=== PATIENT | female | born 1965 | race Caucasian/White ===

== ENCOUNTER 2019-12-09 15:46 | Emergency (ER) | payer MEDICARE, OTHER ==
[~2019-12-09] VITALS: Ht 162.6 cm; Wt 90.0 kg
[~2019-12-09 15:46] MED LIST: TRAM50TA2 PO; UNABLE TO OBTAIN
--- NOTE | 2019-12-09 16:14 | NUR ---
MICHELE Manley is at the bedside at this time.
[2019-12-09] MEDS ORDERED: morphine 4 MG/ML inj SYRINge IV PRN (16:20)
[2019-12-09] MEDS ORDERED: ondansetron/PF 4mg/2ml inj IV ONE (16:20)
[2019-12-09] MEDS ORDERED: normal saline 1000ML IV soln IVB ONE (16:20)
[2019-12-09 16:37] LABS: BASOPHILS # (AUTO) 0.1 X10'3 (0-0.2); BASOPHILS % (AUTO) 1.1 % (0-1); EOSINOPHILS # (AUTO) 0.5 X10'3 (0-0.9); EOSINOPHILS % (AUTO) 4.1 % (0-6); HEMATOCRIT 42.3 % (35.0-45.0); HEMOGLOBIN 13.9 g/dl (12.0-16.0); LYMPHOCYTES # (AUTO) 3.1 X10'3 (1.1-4.8); LYMPHOCYTES % (AUTO) 27.5 % (21-51); MEAN CORPUSCULAR HEMOGLOBIN 29.4 PG (27.0-31.0); MEAN CORPUSCULAR HGB CONC 32.9 g/dL (33.0-36.5); MEAN CORPUSCULAR VOLUME 89.4 FL (78-98); MEAN PLATELET VOLUME 7.7 FL (7.4-10.4); MONOCYTES # (AUTO) 0.9 X10'3 (0-0.9); MONOCYTES % (AUTO) 7.8 % (2-12); NEUTROPHILS # (AUTO) 6.7 X10'3 (1.8-7.7); NEUTROPHILS % (AUTO) 59.5 % (42-75); PLATELET COUNT 409 X10'3 (140-440); RED BLOOD COUNT 4.74 X10'6 (4.20-5.60); RED CELL DISTRIBUTION WIDTH 13.9 % (11.5-14.5); WHITE BLOOD COUNT 11.3 X10'3 (4.5-11.0)
[2019-12-09 16:52] LABS: ALANINE AMINOTRANSFERASE 23 U/L (12-78); ALBUMIN 3.8 G/DL (3.4-5.0); ALBUMIN/GLOBULIN RATIO 0.9 (1.1-1.5); ALKALINE PHOSPHATASE 98 IU/L (46-116); ANION GAP 6 (8-16); ASPARTATE AMINO TRANSFERASE 18 U/L (10-37); BILIRUBIN,TOTAL 0.2 MG/DL (0.1-1.0); BLOOD UREA NITROGEN 15 MG/DL (7-18); BUN/CREATININE RATIO 18.8 (6.6-38.0); CALCIUM 9.1 MG/DL (8.5-10.1); CHLORIDE 103 MMOL/L (99-107); GLUCOSE 87 MG/DL (70-104); LIPASE 485 U/L (73-393); POTASSIUM 4.5 MMOL/L (3.5-5.1); SODIUM 141 MMOL/L (135-145); TOTAL CARBON DIOXIDE 32.2 MMOL/L (24-32); TOTAL PROTEIN 7.9 G/DL (6.4-8.2); eGFR 75 ML/MIN
[2019-12-09 17:54] LABS: CLARITY,URINE SLIGHTLY CLOUDY (Clear); COLOR,URINE YELLOW (Yellow); GLUCOSE, URINE NEGATIVE (Neg); KETONES,URINE NEGATIVE (Neg); LEUKOCYTE ESTERASE ,URINE NEGATIVE (Neg); NITRITES, URINE NEGATIVE (Neg); OCCULT BLOOD,URINE NEGATIVE (Neg); PH,URINE 6.5 (4.8-8.0); PROTEIN,URINE NEGATIVE (Neg); UROBILINOGEN,URINE 0.2 E.U/dL (0.2-1.0)
[2019-12-09 17:59] LABS: UA COLLECTION TYPE CLN CATCH MIDSTREAM
[2019-12-09] MEDS ORDERED: lactulose 20gm/30ml cup PO ONE (18:00)
[2019-12-09] MEDS ORDERED: BISA10SU60 RC (18:00)
[2019-12-09] MEDS ORDERED: POLY17PO10 PO (18:00)
[2019-12-09] MEDS ORDERED: DOCU-148 PO (18:00)
[2019-12-09 18:02] LABS: SQUAMOUS EPITHELIAL CELL,UR MODERATE /LPF (FEW)
[2019-12-09 18:03] LABS: BACTERIA,URINE FEW /HPF (Neg); MUCUS STRANDS NONE SEEN /LPF (Neg); RBC,URINE 0-2 /HPF (0-2); TRANSITIONAL EPI CELLS,URINE FEW /HPF; WBC,URINE 0-4 /HPF (0-4)
[2019-12-09] MEDS ORDERED: ketorolac trometh. 30mg/ml inj. IV ONE (18:10)
[2019-12-09 19:50] VITALS: BP 141/65
== END 2019-12-09 19:20 | disposition home or self-care (01) ==
LOC: ER 15:47
DX: K59.00 Constipation, unspecified (principal); E66.9 Obesity, unspecified; R10.30 Lower abdominal pain, unspecified; E11.9 Type 2 diabetes mellitus without complications; M19.90 Unspecified osteoarthritis, unspecified site; Z98.890 Other specified postprocedural states; Z86.711 Personal history of pulmonary embolism; Z98.84 Bariatric surgery status; Z88.8 Allergy status to other drugs, medicaments and biological substances; Z88.1 Allergy status to other antibiotic agents; Z79.899 Other long term (current) drug therapy
CPT/HCPCS: 36415; 74176; 80053; 81001; 83690; 85025; 96374; 96375; 99284; J1885; J2270; J2405; J7030

== ENCOUNTER 2023-12-27 17:01 | Emergency (ER) | payer OTHER, MEDICARE ==
[~2023-12-27] VITALS: Ht 162.6 cm; Wt 93.6 kg
[~2023-12-27 17:01] MED LIST changes: +BISA10SU60 RC; +DOCU-148 PO
[2023-12-27 17:18] VITALS: BP 125/72; PULSE 77; RESP 16; TEMP 98; O2SAT 99
== END 2023-12-27 19:09 | disposition left against medical advice (07) ==
LOC: ER 17:02
DX: Z04.2 Encounter for examination and observation following work accident (principal)
CPT/HCPCS: 99281

== ENCOUNTER 2025-01-03 16:55 | Emergency (ER) | payer OTHER, MEDICARE ==
[~2025-01-03] VITALS: Ht 162.6 cm; Wt 93.1 kg
[2025-01-03] MEDS: TETanus/Pertussis (Acell)/Diphther VAC/PF (Tdap-Adult) 0.5ml syringe IMVAC ONE (17:51)
[2025-01-03] MEDS ORDERED: CEPH-585 PO (18:01)
[2025-01-03 18:13] VITALS: BP 118/75; PULSE 87; RESP 16; TEMP 97.7; O2SAT 98
== END 2025-01-03 18:00 | disposition home or self-care (01) ==
LOC: ER 16:57
DX: S91.331A Puncture wound without foreign body, right foot, initial encounter (principal); F41.9 Anxiety disorder, unspecified; F32.A Depression, unspecified; E11.9 Type 2 diabetes mellitus without complications; M19.90 Unspecified osteoarthritis, unspecified site; Z88.1 Allergy status to other antibiotic agents; Z88.2 Allergy status to sulfonamides; Z88.6 Allergy status to analgesic agent; Z98.84 Bariatric surgery status; Z98.890 Other specified postprocedural states; X58.XXXA Exposure to other specified factors, initial encounter; Y93.89 Activity, other specified; Y92.89 Other specified places as the place of occurrence of the external cause; Y99.8 Other external cause status
CPT/HCPCS: 90471; 90715; 99283

== ENCOUNTER 2025-06-29 09:51 | Emergency (ER) | payer OTHER, MEDICARE ==
[~2025-06-29] VITALS: Ht 162.6 cm; Wt 90.9 kg
--- NOTE | 2025-06-29 10:30 | ELECTROCARDIOGRAPH REPORT ---
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 Devan Tucker Measurements Intervals Moose Rate: 55 P: 16 TX: 198 QRS: -10 QRSD: 82 T: -7 QT: 410 QTc: 393 Interpretive Statements Sinus bradycardia Left ventricular hypertrophy Borderline T abnormalities, inferior leads Baseline wander in lead(s) II,III,aVL,aVF,V1,V3,V6 Electronically Signed On 06-29-2025 19:35:[address] Devan Tucker Please click the below link to view image of tracing.
[2025-06-29 10:34] LABS: MEAN PLATELET VOLUME 7.8 FL (7.4-10.4); RED CELL DISTRIBUTION WIDTH 14.0 % (11.5-14.5)
--- NOTE | 2025-06-29 10:37 | RADIOLOGY REPORT ---
CLINICAL HISTORY: CP TECHNIQUE: Single view of the chest was obtained. COMPARISON: None FINDINGS: The heart size and pulmonary vasculature are normal. The lungs are clear. IMPRESSION: NO ACUTE CARDIOPULMONARY PROCESS.
--- NOTE | 2025-06-29 10:40 | Physician Documentation ---
History of Present Illness General Chief Complaint: Chest Pain Stated Complaint: BACK PAIN Time Seen by MD: 10:25 OK to notify your PCP?: No Primary Medical Doctor: [facility] Source: patient, RN notes reviewed Mode of Arrival: POV Exam Limitations: no limitations History of Present Illness Initial Comments 60 old female, with a history of pulmonary embolism but no longer and a blood thinner and diabetes, presents complaining of constant epigastric and mid thoracic back pain beginning around 0300 this morning while she was stretching in the bathroom. Pain is described as severe, rated 9/10 at this time. She also reports some mild nausea and mild shortness of breath. Pain worsens with deep breathing. She denies history of cholecystectomy but does have history of bariatric surgery. She denies any fever, diarrhea, constipation, or vomiting. Medication Reconciliation Allergies: Coded Allergies: midazolam HCl (Verified Allergy, Severe, 12/09/19) sulfamethoxazole (Verified Allergy, Severe, 12/09/19) trimethoprim (Verified Allergy, Severe, 12/09/19) NSAIDS (Non-Steroidal Anti-Inflamma (Verified Allergy, Unknown, 12/09/19) ibuprofen (Verified Allergy, Unknown, 12/09/19) Uncoded Allergies: ALL NARCOTICS (Allergy, Unknown, 02/14/15) Scheduled Bisacodyl (Dulcolax), 1 SUPP RC DAILY Docusate Sodium (Colace), 1 CAP PO Q12H Scheduled PRN Tramadol Hcl (Tramadol Hcl), 50 MG PO Q6H PRN FOR PAIN PRN for pain Miscellaneous Medications Unable to Obtain Medications (Unable to Obtain Medications), (Reported) Past Medical History Past Medical History: Pulmonary Embolism, Diverticulitis, Diabetes, Arthritis, Anxiety, Depression Past Surgical History: abdominal surgery, gastric bypass, orthopedic surgeries, other Other Past Surgical History: sinus surgery Smoking: Cigarettes Alcohol Use: Other Drug Use: none Lives In: Home Review of Systems All Other Systems at this time: Reviewed and Negative ROS epigastric pain as well as other positive symptoms as stated above in the HPI, otherwise all systems are reviewed and negative. Physical Exam Physical Exam Vital Signs: RN Vital Signs have been reviewed: Yes, Temperature: 97.7, Source: Temporal, Heart Rate: 56, Respiratory Rate: 10, BP: 119/66, Pulse Oximetry: 93, Weight: 90.900 Oxygen Flow Rate: 0 Pulse Oximetry Reflects: adequate oxygenation Physical Exam VITALS: Reviewed and as above. GENERAL: Alert, mild distress. HEENT: Normocephalic, atraumatic, PERRL, EOMI, dry mucosa RESPIRATORY: Lungs clear, normal breath sounds, no respiratory distress. CHEST: No accessory muscle use, no retractions CV: Regular rate, rhythm, no edema, no murmur, No: JVD GI: Diffuse upper abdominal tenderness. Soft, bowels sounds present, no rebound, guarding, or rigidity BACK: Mild mid thoracic paraspinal tenderness bilaterally. No CVA tenderness, or swelling MUSCULOSKELETAL: No deformities, no edema SKIN: Warm and dry, no rash NEURO: Oriented x4, No motor or sensory deficit PSYCH: Normal mood and affect, no agitation Progress Progress Note 1204: Case discussed with Dr. Pizarro, cardiothoracic surgery, who recommends transfer to higher level of care. 1216: Case relayed to [facility] transfer center. Will call back. 1300: [facility] declined due to capacity. 1415: Case discussed with [facility] transfer [facility] who accept patient for transfer to [facility]. 1515: Helicopter transport here to take the patient to [place]. Results/Orders Reviewed/noted all lab results: Yes Results/Orders Orders - TERRELL CAT MD Chest,Single View (06/29/25 10:12) Monitor (06/29/25 10:12) Saline Lock (06/29/25 10:12) Oxygen (06/29/25 10:12) Electrocardiogram (06/29/25 10:12) Cta Chest Ct Abd Pelvis (06/29/25 11:30) Cta Aorta Disection (06/29/25 13:55) Completed Orders - TERRELL CAT MD Chest,Single View (06/29/25 10:12) Cbc/Diff (06/29/25 10:12) BMP (06/29/25 10:12) PBNP (06/29/25 10:12) Electrocardiogram (06/29/25 10:12) Hs Troponin I W Calculations (06/29/25 10:12) Hs Troponin I W Calculations (06/29/25 12:12) D-Dimer (06/29/25 10:47) Normal Saline 1000ml (0.9% Sodium Chlori (06/29/25 10:50) Acetaminophen 1,000mg/100ml Iv (Ofirmev (06/29/25 10:50) Procalcitonin (06/29/25 10:29) Morphine 4mg/Ml Inj. (Morphine Inj.) (06/29/25 11:10) Cta Chest Ct Abd Pelvis (06/29/25 11:30) Iohexol 350mg/Ml 100ml (Omnipaque 350mg/ (06/29/25 11:33) Labetalol Inj. (Trandate 20 Mg/4ml Syrin (06/29/25 12:05) Morphine 4mg/Ml Inj. (Morphine Inj.) (06/29/25 12:05) Nicardipine-Ns 40mg/200ml Ivpb (Cardene- (06/29/25 13:00) Cta Aorta Disection (06/29/25 13:55) Communication Order (Communication Order (06/29/25 13:35) Iohexol 350mg/Ml 100ml (Omnipaque 350mg/ (06/29/25 13:34) Morphine 4mg/Ml Inj. (Morphine Inj.) (06/29/25 14:20) Vital Signs 06/29/25 06/29/25 06/29/25 06/29/25 10:04 10:23 10:23 12:14 Temp 97.7 97.7 97.7 Pulse 70 56 75 Resp 20 10 18 B/P (MAP) 108/41 119/66 (83) 120/61 (80) Pulse Ox 95 93 95 O2 Flow Rate 0 0 2.0 06/29/25 06/29/25 06/29/25 06/29/25 12:50 13:23 13:44 14:26 Temp 97.7 97.7 Pulse 54 68 67 66 Resp 18 18 16 B/P (MAP) 144/88 (106) 144/71 144/74 (97) 135/65 (88) Pulse Ox 98 93 94 O2 Flow Rate 2.0 2.0 2.0 06/29/25 06/29/25 14:46 14:48 Temp 97.7 Pulse 73 Resp 18 18 B/P (MAP) 142/72 (95) Pulse Ox 94 O2 Flow Rate 2.0 Laboratory Tests Test 06/29/25 10:24 06/29/25 10:29 06/29/25 12:23 White Blood Count 13.8 H Red Blood Count 4.43 Hemoglobin 12.8 Hematocrit 39.0 Mean Corpuscular Volume 88.2 Mean Corpuscular Hemoglobin 28.9 Mean Corpuscular Hemoglobin Concent 32.8 L Red Cell Distribution Width 14.0 Platelet Count 312 Mean Platelet Volume 7.8 Neutrophils (%) (Auto) 78.8 H Lymphocytes (%) (Auto) 11.3 L Monocytes (%) (Auto) 8.7 Eosinophils (%) (Auto) 0.7 Basophils (%) (Auto) 0.5 Neutrophils # (Auto) 10.9 H Lymphocytes # (Auto) 1.6 Monocytes # (Auto) 1.2 H Eosinophils # (Auto) 0.1 Basophils # (Auto) 0.1 CBC Comment D-Dimer 6.75 H D-Dimer Comment Sodium Level 139 Potassium Level 4.1 Chloride Level 103 Carbon Dioxide Level 28.9 Anion Gap 7 L Blood Urea Nitrogen 25 H Creatinine 0.66 Estimated GFR/1.73 m2 > 90 BUN/Creatinine Ratio 37.9 H Glucose Level 175 H Calcium Level 9.3 Troponin I High Sensitivity 6 6 Pro-B-Type Natriuretic Peptide 44 Albumin 4.1 Chemistry Comments Procalcitonin < 0.05 Troponin I High Sens Percent Delta 0 Troponin I Hi Sens Absolute Change 0 EKG/XRAY/CT/US/VASC/MRI EKG : Additional Comment 1014: EKG interpreted by myself to show sinus bradycardia at a rate of 55bpm. LAD, nonspecific ST abnormalities. Chest X-Ray : Additional Comments CLINICAL HISTORY: CP TECHNIQUE: Single view of the chest was obtained. COMPARISON: None FINDINGS: The heart size and pulmonary vasculature are normal. The lungs are clear. IMPRESSION: NO ACUTE CARDIOPULMONARY PROCESS. Reviewed by myself CT : Interpreted By: radiologist CT: chest With Contrast?: Yes Impression Indication: abd pain HX PE Technique: CT axial images of the chest, abdomen and pelvis are obtained with intravenous contrast per CT angiogram protocol. Coronal and sagittal reformats were obtained. Comparison: None FINDINGS: No large filling defect within the main left and right pulmonary arteries. S egmental and subsegmental pulmonary arteries are suboptimally characterize. There is an aortic dissection that is overall suboptimally characterized due to the contrast phase being primarily within the pulmonary arteries. Aortic dissection begins at the aortic root extends into the aortic arch, descending thoracic aorta, abdominal aorta. The dissection extends proximal left common iliac artery. Aneurysmal dilatation of the ascending aorta to 4.9 x 4.8 cm. Small amount of fluid within the superior pericardial recess. Heart normal in size. Trachea patent. No pneumothorax. Bilateral atelectasis. 1.5 cm right thyroid nodule. Adrenal glands demonstrate left adrenal nodule measuring 3.2 cm. Spleen, pancreas and liver unremarkable. No CT evidence for cholelithiasis. No hydronephrosis. Gastric bypass postsurgical changes. Small bowel loops normal in caliber. Colonic diverticular disease. Moderate volume stool in the colon. Normal appendix. Bladder partially distended. Uterine enhancing lesion measuring 7.6 cm, possibly leiomyoma. No free pelvic fluid. No inguinal lymphadenopathy. IMPRESSION: Type A aortic dissection arising at the aortic root and extending into the descending thoracic aorta /abdominal aorta/left common iliac artery. Recommend dedicated CT angiogram of the aorta and STAT thoracic surgery consultation Aneurysmal enlargement of the ascending aorta /aortic root up to 4.9 cm. Small amount of fluid within the superior pericardial recess. No evidence for large pulmonary embolism. Gastric bypass. Left adrenal nodule measuring 3.1 cm. Colonic diverticular disease. Uterine lesion measuring 7.6 cm, possibly leiomyoma. Recommend pelvic ultrasound to further characterize. Other findings as described. Critical Result: Type A a aortic dissection extending to aortic root Findings discussed with Usha Cat at 06/29/2025 12:23 PM, and acknowledged receipt and understanding of the findings. Reviewed by myself. Medical Decision Making Additional info obtained from: old records (Last seen in December for puncture wound) Findings 60-year-old female presents to the emergency department with a complaint of abdominal pain back pain and shortness of breath. Patient states she has a history of back pain she states her pain is in her mid thorax region posteriorly she denies any injury. The patient complains of shortness of breath over last 8 hours she states the pain developed fairly suddenly over last 8 hours. The patient denies any cardiac history she denies any history of pulmonary problems. Patient states she has a history of long COVID. She is not on any blood thinne rs. She also states she has no history of hypertension she is not on any antihypertensive agents. The patient has a CT angiogram for pulmonary embolism which demonstrated a type a aortic dissection, the patient was treated in the emergency department here with 10 mg of labetalol IV and then a nicardipine drip was started at 2.5 mg an hour. The patient has received several doses of morphine. The patient's plain film imaging was reviewed by myself the patient's EKG was interpreted by me the patient's labs have been reviewed case has been extensively discussed with multiple potential transfer sites to include [facility] as well as [facility]. [facility] is the closest facility and is willing to accept the patient has a bed available so the decision was made to go to [facility] in [place]. The patient remains hemodynamically stable. Patient did require critical care time. 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 Departure Time of Disposition: 14:15 Disposition: 02 SHORT TERM HOSPITAL Impression: Primary Impression: Type A aortic dissection Condition: Critical Critical Care Note Total Time (mins): 120 Critical Care Note Critical Care Time: 120 minutes Treatments/Evaluations: Close monitoring and treatment of unstable vital signs, cardiorespiratory, and neurologic status, while maintaining tight balance of fluid, respiratory, and cardiac interventions. This time includes discussing the case with the patient and the patient's family. This time does not include all procedures stated elsewhere in this record. This time also includes reviewing o ld records, labs and radiological studies. This time includes examining and re- examining the patient. Additionally, this time also includes arranging care with admitting and consulting physicians. Signature Scribe Signature: Scribed for Terrell Cat MD by Alex Fajardo . 06/29/25 10:48 Attestation: The note accurately reflects work and decisions made by me.Terrell Cat MD 07/01/25 08:25 TERRELL CAT MD Jun 29, 2025 10:40 ALEX KAPOOR Jun 29, 2025 11:07
[2025-06-29 11:01] LABS: CREATININE 0.66 MG/DL (0.40-0.90); PRO BRAIN NATRIURETIC PEPTIDE 44 PG/ML (0-125); TOTAL CARBON DIOXIDE 28.9 MMOL/L (24-32); eCRCL 80 ML/MIN; eGFR > 90 ML/MIN
[2025-06-29] MEDS: acetaminophen 1,000mg/100ml IV 100 ML IV ONE (11:06)
[2025-06-29] MEDS: normal saline 1000ML IV soln IVB ONE (11:06)
[2025-06-29] MEDS: morphine 4 MG/ML inj SYRINge IV ONE ×3 (11:13→14:26)
[2025-06-29] MEDS: labetalol 20mg/4ml (5mg/ml) syringe IV ONE (12:10)
--- NOTE | 2025-06-29 12:26 | RADIOLOGY REPORT ---
Indication: abd pain HX PE Technique: CT axial images of the chest, abdomen and pelvis are obtained with intravenous contrast p er CT angiogram protocol. Coronal and sagittal reformats were obtained. Comparison: None FINDINGS: No large filling defect within the main left and right pulmonary arteries. Segmental and subsegmental pulmonary arteries are suboptimally characterize. There is an aortic dissection that is overall suboptimally characterized due to the contrast phase be ing primarily within the pulmonary arteries. Aortic dissection begins at the aortic root extends into the aortic arch, descending thoracic aorta, abdominal aorta. The dissection extends proximal left c ommon iliac artery. Aneurysmal dilatation of the ascending aorta to 4.9 x 4.8 cm. Small amount of flu id within the superior pericardial recess. Heart normal in size. Trachea patent. No pneumothorax. Bilateral atelectasis. 1.5 cm right thyroid nodule. Adrenal glands demonstrate left adrenal nodule measuring 3.2 cm. Spleen, pancreas and liver unremark able. No CT evidence for cholelithiasis. No hydronephrosis. Gastric bypass postsurgical changes. Small bowel loops normal in caliber. Colonic diverticular disease. Moderate volume stool in the colon. Normal appendix. Bladder partially distended. Uterine enhancing lesion measuring 7.6 cm, possibly leiomyoma. No free pelvic fluid. No inguinal lymphadenopathy. IMPRESSION: Type A aortic dissection arising at the aortic root and extending into the descending thoracic aorta /abdominal aorta/left common iliac artery. Recommend dedicated CT angiogram of the aorta and STAT [facility] consultation Aneurysmal enlargement of the ascending aorta /aortic root up to 4.9 cm. Small amount of fluid within the superior pericardial recess. No evidence for large pulmonary embolism. Gastric bypass. Left adrenal nodule measuring 3.1 cm. Colonic diverticular disease. Uterine lesion measuring 7.6 cm, possibly leiomyoma. Recommend pelvic ultrasound to further laureacte geraldineze. Other findings as described. Critical Result: Type A a aortic dissection extending to aortic root Findings discussed with Usha Cat at 06/29/2025 12:23 PM, and acknowledged receipt and understanding of the findings. ..
--- NOTE | 2025-06-29 12:38 | PROGRESS NOTE ---
Clinical Note Clinical Note Progress Note: Called by the ED physician re finding on a PE study of type A dissection admitted with back pain. Pt hemodynamically stable. Images reviewed- dissection appears involve the root with extension down to the distal left iliac. Pt may likely require root and arch replacement, along with possible endovascular fenestration of the false lumen flap in the visceral segment. I have recommended transfer to a higher level of care for surgical management of this complex dissection. I have advise BP and HR control in the interim. Consider repeat imaging with contrast in arterial phase. SUZANNE HYDE MD Jun 29, 2025 12:38
[2025-06-29] MEDS: niCARDipine-NS 40mg/200ml IVPB 200 ML IV ONE (13:23)
[2025-06-29] MEDS: COMMUNICATION ORDER 1 EA MISC MC ONE (13:42)
[2025-06-29 14:48] VITALS: BP 142/72; PULSE 73; RESP 18; TEMP 97.7; O2SAT 94
--- NOTE | 2025-06-29 15:09 | RADIOLOGY REPORT ---
Indication: aortic dissection Technique: CT angiogram of the aorta performed with the administration of contrast. Coronal and sagi ttal reformats were obtained.. Coronal and sagittal reformats were obtained. Radiation Dose Information: CTDI volume is 26 mGy. Dose-length product is 1681 mGy*cm Comparison: CTA of the chest from this morning. FINDINGS: Type A aortic dissection beginning at the aortic root /annulus. The dissection flap begins just The a scending aorta measures approximately 4.9 x 4.6 cm in diameter. The dissection extends into the desce nding thoracic aorta, abdominal aorta, left common iliac artery up to the iliac bifurcation. There is decreased opacification of the left iliac artery relative to the right iliac artery. The celiac and superior mesenteric arteries are patent. Proximal common carotid arteries and vertebral arteries are well opacified without evidence for hemod ynamically significant stenosis. No definitive flap seen extending into the neck vessels. There are 2 left renal arteries. The superior left renal artery appears to be supplied by the true l umen. The inferior left renal artery appears to be supplied by the false lumen. Dissection flap extends to the ostium of the RHODA which appears to be supplied by the true lumen. The RHODA is well opacified. Small amount of fluid within the superior pericardial recess. Trachea patent. No pneumothorax. Bilateral atelectasis. No supraclavicular/ axillary lymphadenopathy. 1.5 cm right thyroid nodule. 2.8 cm left adrenal nodule. Spleen, pancreas and liver demonstrate no enhancing hepatic lesions. No CT evidence for cholelithiasis. Kidneys demonstrate no hydronephrosis. Postsurgical changes stomach/gastric bypass. Small bowel loops normal in caliber. Colonic diverticula . Moderate volume stool in the colon. Normal appendix. Uterine heterogeneously enhancing circumferential lesion measuring 7.9 cm. No aggressive osseous process IMPRESSION: Type A aortic dissection beginning from the aortic root and extending into the thoracic/abdominal aor ta, left common iliac artery Aneurysmal dilatation of the ascending aorta to 4.9 cm. There are 2 left renal arteries. The inferior left renal artery is supplied by the false lumen. Decreased opacification of the left external iliac artery, left [employer] CLAIMS EXAMINER , likely being supplied from the false lumen Small amount of fluid within the superior pericardial recess. Right thyroid nodule. Uterine circumferential lesion measuring 7.9 cm. Colonic diverticular disease. Left adrenal nodule which can be further characterized with nonemergent MRI abdomen adrenal mass prot ocol. Other findings as described Thoracic surgery consultation recommended for further management
== END 2025-06-29 18:16 | disposition short-term general hospital (02) ==
LOC: ER 09:52
DX: I71.02 Dissection of abdominal aorta (principal); M54.50 Low back pain, unspecified; F32.A Depression, unspecified; F41.9 Anxiety disorder, unspecified; E11.9 Type 2 diabetes mellitus without complications; M19.90 Unspecified osteoarthritis, unspecified site; Z88.1 Allergy status to other antibiotic agents; Z88.2 Allergy status to sulfonamides; Z88.6 Allergy status to analgesic agent; Z98.84 Bariatric surgery status; R06.02 Shortness of breath
CPT/HCPCS: 36415; 71045; 71275; 74177; 80048; 83880; 84145; 84484; 85025; 85379; 93005; 96365; 96375; 96376; 99285; J0131; J2270; J3490; J7030; Q9967; 96367; C1758